=== PATIENT | male | born 1945 | race Caucasian/White ===

== ENCOUNTER 2018-08-23 17:26 | Emergency (ER) | payer BC, MEDICARE ==
[2018-08-23] MEDS ORDERED: SODIUM CHLORIDE 0.9% 1,000 ML IV STA (17:30)
[2018-08-23 17:33] VITALS: RESP 18
--- NOTE | 2018-08-23 17:35 | ED ---
General Adult HPI - General Stated complaint: Dizzy,Weak Time Seen by Provider: 08/23/18 17:30 - History of Present Illness Initial comments: Patient is a 73-year-old male presenting for near-syncope. Per EMS, prostate 45 minutes prior to presentation the patient was on the toilet having a bowel movement when he stood up and went to talk to family. He became very dizzy, weak, pale and diaphoretic. He did have a low blood pressure which is not quant ified by EMS as well as blood sugar of 100. He had one episode of nausea and vomiting in the ambulance and family states that he had 3 episodes of coming in and out of consciousness where he was staring off into space. These episodes last about 5 minutes and when he would come back to it, he was not confused. He denied any significant headache, vision changes, chest pain, shortness breath and states that he feels completely fine now. - Related Data Home Medications Medication Instructions Recorded Confirmed Acetaminophen/Diphenhydramine 2 tab PO HS 08/23/18 08/23/18 [Tylenol PM 500-25mg] Allopurinol [Zyloprim] 300 mg PO DAILY 08/23/18 08/23/18 Aspirin [[place] Aspirin EC] 81 mg PO DAILY 08/23/18 08/23/18 Atorvastatin [Lipitor] 20 mg PO MOWESA 08/23/18 08/23/18 Celecoxib [CeleBREX] 200 mg PO BID 08/23/18 08/23/18 Ergocalciferol (Vitamin D2) 50,000 unit PO NUNN 08/23/18 08/23/18 [Drisdol] Finasteride [Proscar] 5 mg PO DAILY 08/23/18 08/23/18 Krill Oil 500 mg PO DAILY 08/23/18 08/23/18 Multivitamins, Thera [Multivitamin 1 tab PO DAILY 08/23/18 08/23/18 (formulary)] Quinapril HCl [Accupril] 40 mg PO DAILY 08/23/18 08/23/18 Ranitidine HCl [Zantac] 150 mg PO DAILY PRN 08/23/18 08/23/18 metFORMIN HCL [Glucophage] 850 mg PO BID 08/23/18 08/23/18 Allergies Allergy/AdvReac Type Severity Reaction Status Date / Time No Known Allergies Allergy Verified 08/23/18 18:17 Review of Systems ROS Statement: Those systems with pertinent positive or pertinent negative responses have been documented in the HPI. Constitutional: Negative for chills, fatigue and fever. Positive for diaphoresis HENT: Negative for congestion. Respiratory: Negative for chest tightness, shortness of breath and wheezing. Negative for cough Cardiovascular: Negative for chest pain and palpitations. Gastrointestinal: Negative for abdominal pain. Negative for abdominal distention, diarrhea, positive for nausea and vomiting. Genitourinary: Negative for dysuria. Musculoskeletal: Negative for back pain, neck pain and neck stiffness. Skin: Negative for color change. Neurological: Negative for dizziness, speech difficulty, weakness and light- headedness. Psychiatric/Behavioral: Negative for agitation and confusion. Negative for anxiety ROS Other: All systems not noted in ROS Statement are negative. General Exam - General Exam Comments Initial Comments: Constitutional: Pt appears well-developed and well-nourished. No distress. Head: Normocephalic and atraumatic. Eyes: EOM are normal. Neck: Normal range of motion. Neck supple. Cardiovascular: Normal rate, regular rhythm, S1 normal, S2 normal and normal heart sounds. Exam reveals no gallop and no friction rub. No murmur heard. Pulmonary/Chest: Effort normal and breath sounds normal. No tachypnea and no bradypnea. No respiratory distress. No wheezes or rales noted. Abdominal: Soft. Bowel sounds are normal. Pt exhibits no shifting dullness, no distension, no pulsatile liver, no fluid wave, no abdominal bruit and no ascites. There is no rigidity, no rebound, no guarding, no tenderness at McBurney's point and negative Brush's sign. There is no tenderness. Musculoskeletal: Normal range of motion. Neurological: Pt is alert and oriented to person, place, and time. No cranial nerve deficit. Skin: Skin is warm and dry. No rash noted. Pt is not diaphoretic. No erythema. No pallor. Psychiatric: Pt has a normal mood and affect. Pt behavior is normal. Thought content normal. Course Vital Signs 08/23/18 08/23/18 08/23/18 17:28 18:53 19:09 Temperature 97.6 F Pulse Rate 78 83 Pulse Rate [ 87 Right Sitting Pulse Oximetery ] Pulse Rate [ 86 Right Standing Pulse Oximetery ] Pulse Rate [ 81 Right Supine Pulse Oximetery ] Respiratory 18 18 18 Rate Blood Pressure 126/77 110/65 Blood Pressure 135/72 [Right Arm Sitting] Blood Pressure 136/71 [Right Arm Standing] Blood Pressure 135/65 [Right Arm Supine] O2 Sat by Pulse 96 98 Oximetry EKG Findings - EKG Comments: EKG Findings:: EKG shows normal sinus rhythm with a rate of 70 bpm, NC interval 172, QRS 84, QTC 451. There are no significant ST depressions or elevations. Medical Decision Making - Medical Decision Making Laboratory studies showed that there is no significant anemia, leukocytosis, which was derangements or acute kidney injury. There is also no evidence of urinary check infection. From a cardiac standpoint, EKG was unremarkable and d- dimer was also noted to be negative. Troponin was negative and chest x-ray was unremarkable. CT of the head was also negative for emergent pathology but did show some chronic atrophy. Since of discussion was had with the patient, his and children and shared decision making was had. His explained that it was very reasonable to keep the patient in observation as neurologic etiology cannot be completely excluded. However, patient also expressed desire to go home and follow with PCP in his explained that this is also reasonable choice as it is a high probability that this is a vasovagal type near-syncope episode. Pros and cons of both were discussed and all parties were agreeable to letting the patient be discharged and having close follow-up with PCP. Patient was advised to return to emergency department the symptoms persisted or worsened. At the time of disposition, the patient was completely asymptomatic and in a very jovial mood. - Lab Data Result diagrams: 08/23/18 17:45 08/23/18 17:45 Lab Results 08/23/18 08/23/18 08/23/18 Range/Units 17:45 17:45 17:45 WBC 10.5 (3.8-10.6) k/uL RBC 4.64 (4.30-5.90) m/uL Hgb 14.8 (13.0-17.5) gm/dL Hct 45.2 (39.0-53.0) % MCV 97.3 (80.0-100.0) fL MCH 31.9 (25.0-35.0) pg MCHC 32.8 (31.0-37.0) g/dL RDW 13.7 (11.5-15.5) % Plt Count 267 (150-450) k/uL Neutrophils % 62 % Lymphocytes % 23 % Monocytes % 7 % Eosinophils % 4 % Basophils % 1 % Neutrophils # 6.5 (1.3-7.7) k/uL Lymphocytes # 2.4 (1.0-4.8) k/uL Monocytes # 0.7 (0-1.0) k/uL Eosinophils # 0.4 (0-0.7) k/uL Basophils # 0.1 (0-0.2) k/uL PT 10.1 (9.0-12.0) sec INR 0.9 (<1.2) D-Dimer 0.42 (<0.60) mg/L FEU Sodium 142 (137-145) mmol/L Potassium 4.3 (3.5-5.1) mmol/L Chloride 106 (98-107) mmol/L Carbon Dioxide 19 L (22-30) mmol/L Anion Gap 17 mmol/L BUN 20 (9-20) mg/dL Creatinine 1.45 H (0.66-1.25) mg/dL Est GFR (CKD-EPI)AfAm 55 (>60 ml/min/1.73 sqM) Est GFR (CKD-EPI)NonAf 47 (>60 ml/min/1.73 sqM) Glucose 99 (74-99) mg/dL Calcium 10.1 (8.4-10.2) mg/dL Magnesium 1.9 (1.6-2.3) mg/dL Total Bilirubin 0.9 (0.2-1.3) mg/dL AST 39 (17-59) U/L ALT 35 (21-72) U/L Alkaline Phosphatase 51 (38-126) U/L Troponin I (0.000-0.034) ng/mL Total Protein 7.2 (6.3-8.2) g/dL Albumin 4.7 (3.5-5.0) g/dL Urine Color Urine Appearance (Clear) Urine pH (5.0-8.0) Ur Specific [place] (1.001-1.035) Urine Protein (Negative) Urine Glucose (UA) (Negative) Urine Ketones (Negative) Urine Blood (Negative) Urine Nitrite (Negative) Urine Bilirubin (Negative) Urine Urobilinogen (<2.0) mg/dL Ur Leukocyte Esterase (Negative) Urine RBC (0-5) /hpf Urine WBC (0-5) /hpf Ur Squamous Epith Cells (0-4) /hpf Amorphous Sediment (None) /hpf Hyaline Casts (0-2) /lpf Urine Mucus (None) /hpf 08/23/18 08/23/18 Range/Units 17:45 19:17 WBC (3.8-10.6) k/uL RBC (4.30-5.90) m/uL Hgb (13.0-17.5) gm/dL Hct (39.0-53.0) % MCV (80.0-100.0) fL MCH (25.0-35.0) pg MCHC (31.0-37.0) g/dL RDW (11.5-15.5) % Plt Count (150-450) k/uL Neutrophils % % Lymphocytes % % Monocytes % % Eosinophils % % Basophils % % Neutrophils # (1.3-7.7) k/uL Lymphocytes # (1.0-4.8) k/uL Monocytes # (0-1.0) k/uL Eosinophils # (0-0.7) k/uL Basophils # (0-0.2) k/uL PT (9.0-12.0) sec INR (<1.2) D-Dimer (<0.60) mg/L FEU Sodium (137-145) mmol/L Potassium (3.5-5.1) mmol/L Chloride (98-107) mmol/L Carbon Dioxide (22-30) mmol/L Anion Gap mmol/L BUN (9-20) mg/dL Creatinine (0.66-1.25) mg/dL Est GFR (CKD-EPI)AfAm (>60 ml/min/1.73 sqM) Est GFR (CKD-EPI)NonAf (>60 ml/min/1.73 sqM) Glucose (74-99) mg/dL Calcium (8.4-10.2) mg/dL Magnesium (1.6-2.3) mg/dL Total Bilirubin (0.2-1.3) mg/dL AST (17-59) U/L ALT (21-72) U/L Alkaline Phosphatase (38-126) U/L Troponin I <0.012 (0.000-0.034) ng/mL Total Protein (6.3-8.2) g/dL Albumin (3.5-5.0) g/dL Urine Color Yellow Urine Appearance Clear (Clear) Urine pH 5.5 (5.0-8.0) Ur Specific [place] 1.023 (1.001-1.035) Urine Protein 1+ H (Negative) Urine Glucose (UA) Negative (Negative) Urine Ketones Negative (Negative) Urine Blood Negative (Negative) Urine Nitrite Negative (Negative) Urine Bilirubin Negative (Negative) Urine Urobilinogen <2.0 (<2.0) mg/dL Ur Leukocyte Esterase Negative (Negative) Urine RBC 1 (0-5) /hpf Urine WBC 3 (0-5) /hpf Ur Squamous Epith Cells <1 (0-4) /hpf Amorphous Sediment Rare H (None) /hpf Hyaline Casts 92 H (0-2) /lpf Urine Mucus Few H (None) /hpf Disposition Clinical Impression: Near syncope Disposition: HOME SELF-CARE Condition: Good Instructions (If sedation given, give patient instructions): Near Syncope (ED) Is patient prescribed a controlled substance at d/c from ED?: No Referrals: Alaina Bertrand DO [Primary Care Provider] - 1-2 days Time of Disposition: 19:42
[2018-08-23 18:01] LABS: Basophils # (A) 0.1 k/uL (0-0.2); Basophils % (A) 1 %; Eosinophils # (A) 0.4 k/uL (0-0.7); Eosinophils % (A) 4 %; HCT 45.2 % (39.0-53.0); HGB 14.8 gm/dL (13.0-17.5); Lymphocytes # (A) 2.4 k/uL (1.0-4.8); Lymphocytes % (A) 23 %; MCH 31.9 pg (25.0-35.0); MCHC 32.8 g/dL (31.0-37.0); MCV 97.3 fL (80.0-100.0); Mean Platelet Volume 7.3; Monocytes # (A) 0.7 k/uL (0-1.0); Monocytes % (A) 7 %; Neutrophils # (A) 6.5 k/uL (1.3-7.7); Neutrophils % (A) 62 %; Platelet Count 267 k/uL (150-450); RBC 4.64 m/uL (4.30-5.90); RDW 13.7 % (11.5-15.5); WBC 10.5 k/uL (3.8-10.6)
[2018-08-23 18:12] LABS: D-Dimer 0.42 mg/L FEU (<0.60); INR 0.9 (<1.2); Prothrombin Time 10.1 sec (9.0-12.0)
[2018-08-23 18:18] LABS: Albumin 4.7 g/dL (3.5-5.0); Calcium 10.1 mg/dL (8.4-10.2); Magnesium 1.9 mg/dL (1.6-2.3); Total Bilirubin 0.9 mg/dL (0.2-1.3); Total Protein 7.2 g/dL (6.3-8.2)
[2018-08-23 18:19] LABS: Potassium 4.3 mmol/L (3.5-5.1)
--- NOTE | 2018-08-23 18:20 | CT ---
EXAMINATION TYPE: CT brain wo con DATE OF EXAM: 08/23/2018 COMPARISON: 07/17/2010 HISTORY: weakness, near syncope CT DLP: 1113.4 mGycm Automated exposure control for dose reduction was used. FINDINGS: There is cerebral cortical atrophy. There is no mass effect nor midline shift. There is no sign of in tracranial hemorrhage. Calvarium is intact. IMPRESSION: MILD ATROPHY. NO ACUTE INTRACRANIAL ABNORMALITY. NO ADVERSE CHANGE COMPARED TO OLD EXAM.
--- NOTE | 2018-08-23 18:22 | XR ---
EXAMINATION TYPE: XR chest 2V DATE OF EXAM: 08/23/2018 COMPARISON: NONE HISTORY: Weakness TECHNIQUE: Frontal and lateral views of the chest are obtained. FINDINGS: Heart and mediastinum are normal. Lungs are clear. Diaphragm is normal. Bony thorax is int act. There are chest leads. IMPRESSION: No active cardiopulmonary disease.
[2018-08-23 19:35] LABS: Amorphous Sediment,Urine Rare /hpf; Appearance,Urine Clear (Clear); Bilirubin,Urine Negative (Negative); Blood,Urine Negative (Negative); Color,Urine Yellow; Glucose,Urine (UA) Negative (Negative); Hyaline Casts,Urine 92 /lpf (0-2); Ketones,Urine Negative (Negative); Leukocyte Esterase,Urine Negative (Negative); Mucus,Urine Few /hpf; Nitrite,Urine Negative (Negative); PH, Urine 5.5 (5.0-8.0); Protein,Urine 1+ (Negative); RBC,Urine 1 /hpf (0-5); Specific Gravity,Urine 1.023 (1.001-1.035); Squamous Epithelial Cell,Urine <1 /hpf (0-4); Urobilinogen,Urine <2.0 mg/dL (<2.0); WBC,Urine 3 /hpf (0-5)
[2018-08-23 19:58] VITALS: BP 141/66; PULSE 84; TEMP 97.9
== END 2018-08-23 19:57 | disposition home or self-care (01) ==
LOC: EC 17:26
DX: R55 Syncope and collapse (principal); R53.1 Weakness; R42 Dizziness and giddiness; G31.9 Degenerative disease of nervous system, unspecified; Z79.82 Long term (current) use of aspirin; Z79.84 Long term (current) use of oral hypoglycemic drugs; Z79.899 Other long term (current) drug therapy
CPT/HCPCS: 36415; 70450; 71046; 80053; 81001; 83735; 84484; 85025; 85379; 85610; 93005; 96360; 99285

== ENCOUNTER → 2023-02-07 | Outpatient (CLI) | payer MEDICARE, BC ==
[2023-02-07 16:42] LABS: HCT 47.6 % (39.6-50.0); HGB 15.1 d/dL (13.0-17.0); MCH 31.7 pg (27.0-32.0); MCHC 31.7 d/dL (32.0-37.0); MCV 99.8 FL (80.0-97.0); Mean Platelet Volume 10.7 FL (9.5-12.2); NRBC Per 100 WBC 0 X 10*3/uL (0.00-0.01); Platelet Count 232 X 10*3/uL (140-440); RBC 4.77 X 10*6/uL (4.40-5.60); RDW 13.2 % (11.5-14.5); WBC 12.35 X 10*3/uL (4.50-10.00)
[2023-02-07 17:01] LABS: ALT 22 U/L (10-49); AST 17 U/L (14-35); Albumin 4.3 d/dL (3.8-4.9); Albumin/Globulin Ratio 2.05 Ratio (1.60-3.17); Alkaline Phosphatase 88 U/L (41-126); Blood Urea Nitrogen 12.3 mg/dL (9.0-27.0); Calcium 9.8 mg/dL (8.7-10.3); Carbon Dioxide 25.2 mmol/L (21.6-31.8); Chloride 105 mmol/L (96-109); Chol/HDL Ratio 3.03 Ratio; Globulin 2.1 d/dL (1.6-3.3); Glucose 122 mg/dL (70-110); LDL Cholesterol,Calculated 90.8 mg/dL (0.0-131.0); Potassium 5.2 mmol/L (3.5-5.5); Sodium 141 mmol/L (135-145); Total Bilirubin 0.4 mg/dL (0.3-1.2); Total Protein 6.4 d/dL (6.2-8.2)
== END | disposition home or self-care (01) ==
LOC: LABWHC1 08:10
PROVIDERS: ATTEND Family Medicine
DX: I12.9 Hypertensive chronic kidney disease with stage 1 through stage 4 chronic kidney disease, or unspecified chronic kidney disease (principal); E78.5 Hyperlipidemia, unspecified; E11.22 Type 2 diabetes mellitus with diabetic chronic kidney disease; N18.9 Chronic kidney disease, unspecified
CPT/HCPCS: 36415; 80053; 80061; 83036; 84443; 85027

== ENCOUNTER → 2023-10-29 | Outpatient (CLI) | payer MEDICARE, BC ==
[2023-10-29 12:20] LABS: Blood Urea Nitrogen 20.9 mg/dL (9.0-27.0); Carbon Dioxide 22.5 mmol/L (21.6-31.8); Chloride 106 mmol/L (96-109); Potassium 4.1 mmol/L (3.5-5.5); Sodium 140 mmol/L (135-145)
== END | disposition home or self-care (01) ==
LOC: LABWHC1 07:30
PROVIDERS: ATTEND Internal Medicine Interventional Cardiology
DX: I10 Essential (primary) hypertension (principal)
CPT/HCPCS: 36415; 80051; 82565; 84520